=== PATIENT | female | born 1970 | race Caucasian/White ===

== ENCOUNTER 2020-11-06 17:29 | Emergency (ER) | payer BC ==
[~2020-11-06] VITALS: Ht 172.7 cm; Wt 59.0 kg
[~2020-11-06 17:29] MED LIST: FLEXERIL OR; LORTAB5 OR; LORTAB5 PO; NAPROSYN500 MG OR; NAPROSYN500 MG PO; SUBOXONE1 MI1 SL
[2020-11-06 18:20] LABS: HEMATOCRIT 41.9 % (37.0-47.0); HEMOGLOBIN 13.6 g/dl (12.0-16.0); IMMATURE GRANULOCYTES 0.6 % (0.0-5.0); MEAN CELL VOLUME 90.5 fL CALC (80.0-100.0); MEAN CORPUSCULAR HGB 29.4 pG CALC (26.0-32.0); MEAN CORPUSCULAR HGB CONC 32.5 g/dL CAL (32.0-36.0); NEUT# 21.45 thou/uL (2.00-7.15); RED BLOOD COUNT 4.63 mill/uL (4.20-5.60); RED CELL DISTRI WIDTH 14.4 % (11.5-15.5)
[2020-11-06 18:31] LABS: ALBUMIN 4.2 g/dL (3.2-5.0); ALKALINE PHOSPHATASE 76 u/l (38-126); ANION GAP 11 (6-22 (CALC)); BILIRUBIN, TOTAL 0.7 mg/dL (0.0-1.4); BUN 13 mg/dL (7-17); BUN/CREATININE RATIO 26 (12-20 (CALC)); CARBON DIOXIDE 25 mmol/l (22-30); CHLORIDE 98 mmol/l (95-108); CREATININE 0.5 mg/dL (0.5-1.0); GFR > 60 ML/MIN (>=60 (CALC)); GFR FOR AFR.AMER. > 60 ML/MIN (>=60 (CALC)); LIPASE 279 u/l (23-300); SGOT/AST 51 u/l (14-36)
[2020-11-06 18:32] LABS: SODIUM 130 mmol/l (137-146)
[2020-11-06 20:00] VITALS: BP 142/80
== END 2020-11-06 20:02 | disposition short-term general hospital (02) | DRG 395 ==
LOC: ED 17:29
DX: K35.80 Unspecified acute appendicitis (principal); F17.210 Nicotine dependence, cigarettes, uncomplicated; F11.21 Opioid dependence, in remission; Z20.822 Contact with and (suspected) exposure to COVID-19
CPT/HCPCS: Q9967

== ENCOUNTER 2022-12-26 06:41 | Day surgery (SDC) | payer BC ==
[~2022-12-26] VITALS: Ht 172.7 cm; Wt 80.3 kg
[~2022-12-26 06:41] MED LIST changes: +BUPROPION HCL150 MG PO; +GLUCOS/CHON2 PO; +HYZAAR1 TA1 PO; +MULT PO; +OS-CAL 500500 M1 PO; +PROBIOTI3 PO; +WOMENS PO
[2022-12-26 08:59] VITALS: BP 160/87
== END 2022-12-26 09:23 | disposition home or self-care (01) | DRG 395 ==
LOC: ENDO 06:41 → ORM 09:45 → ENDO 10:05
PROVIDERS: ATTEND Surgery
PROC: 0DBP8ZX Excision of Rectum, Via Natural or Artificial Opening Endoscopic, Diagnostic (ICD-10-PCS; principal; 2022-12-26)
PROC: 3E0H8GC Introduction of Other Therapeutic Substance into Lower GI, Via Natural or Artificial Opening Endoscopic (ICD-10-PCS; 2022-12-26)
DX: D12.8 Benign neoplasm of rectum (principal); K64.4 Residual hemorrhoidal skin tags

== ENCOUNTER 2023-01-11 12:26 | Emergency (ER) | payer BC ==
[2023-01-11] VITALS (9 sets, daily range): BP systolic 103–150; BP diastolic 63–85
[~2023-01-11] VITALS: Ht 172.7 cm; Wt 85.0 kg
[2023-01-11 13:28] LABS: URINE BILIRUBIN - DIPSTICK NEGATIVE (NEGATIVE); URINE BLOOD DIPSTICK NEGATIVE (NEGATIVE); URINE COLOR YELLOW; URINE GLUCOSE - DIPSTICK NEGATIVE (NEGATIVE); URINE KETONE NEGATIVE (NEGATIVE); URINE LEUK ESTERASE NEGATIVE (NEGATIVE); URINE PROTEIN - DIPSTICK NEGATIVE (NEG-TRACE); URINE SPECIFIC GRAVITY <=1.005; URINE UROBILINOGEN - DIPSTICK 0.2 E.U./dL (0.2)
[2023-01-11 13:41] LABS: URINE NITRITE - DIPSTICK NEGATIVE (Negative)
[2023-01-11 14:07] LABS: BASO% 0.4 % (0-3); EOS% 0.7 % (0-8); HEMATOCRIT 40.6 % (37.0-47.0); IMMATURE GRANULOCYTES 0.3 % (0.0-5.0); LYMPH% 22.8 % (15-41); MEAN CELL VOLUME 92.7 fL CALC (80.0-100.0); MEAN CORPUSCULAR HGB 29.7 pG CALC (26.0-32.0); MONO% 9.7 % (2-13); NEUT# 10.64 thou/uL (2.00-7.15); NEUT% 66.1 % (42-76); RED BLOOD COUNT 4.38 mill/uL (4.20-5.60); RED CELL DISTRI WIDTH 14.2 % (11.5-15.5)
[2023-01-11 14:13] LABS: ALBUMIN 4.5 g/dL (3.2-5.0); ALKALINE PHOSPHATASE 78 u/l (38-126); ANION GAP 13 (6-22 (CALC)); BUN 11 mg/dL (7-17); BUN/CREATININE RATIO 16 (12-20 (CALC)); CARBON DIOXIDE 26 mmol/l (22-30); CHLORIDE 102 mmol/l (95-108); CREATININE 0.7 mg/dL (0.5-1.0); GFR FOR AFR.AMER. > 60 ML/MIN (>=60 (CALC)); GFR OTHER RACES > 60 ML/MIN (>=60 (CALC)); POTASSIUM 4.1 mmol/l (3.5-5.1); SGOT/AST 38 u/l (14-36); SODIUM 136 mmol/l (137-146); TOTAL PROTEIN 7.8 g/dL (6.3-8.2)
[2023-01-11 14:24] LABS: BILIRUBIN, TOTAL 0.3 mg/dL (0.02-1.3)
[2023-01-11] MEDS ORDERED: NAPROXEN500 MG PO (16:24)
[2023-01-11] MEDS ORDERED: CONSTULOSE10 GM/15 M PO (16:24)
== END 2023-01-11 16:50 | disposition home or self-care (01) | DRG 392 ==
LOC: ED 12:26
PROVIDERS: Nurse Practitioner
DX: R10.30 Lower abdominal pain, unspecified (principal); K59.09 Other constipation; D36.7 Benign neoplasm of other specified sites; Z90.710 Acquired absence of both cervix and uterus; F17.200 Nicotine dependence, unspecified, uncomplicated
CPT/HCPCS: Q9967

== ENCOUNTER 2023-04-03 19:43 | Emergency (ER) | payer BC ==
[~2023-04-03] VITALS: Ht 172.7 cm; Wt 79.0 kg
[~2023-04-03 19:43] MED LIST changes: +CONSTULOSE10 GM/15 M PO; +NAPROXEN500 MG PO
[2023-04-03 23:38] VITALS: BP 138/70
== END 2023-04-03 23:38 | disposition home or self-care (01) | DRG 563 ==
LOC: ED 19:43
DX: S92.421A Displaced fracture of distal phalanx of right great toe, initial encounter for closed fracture (principal); F17.200 Nicotine dependence, unspecified, uncomplicated; W17.2XXA Fall into hole, initial encounter; Y92.007 Garden or yard of unspecified non-institutional (private) residence as the place of occurrence of the external cause